=== PATIENT | female | born 1990 | race Caucasian/White ===

== ENCOUNTER 2019-09-27 12:57 | Emergency (ER) | payer OTHER ==
--- OUTSIDE RECORDS SUMMARY | 2019-09-27 13:13 | XMS REPORT | Continuity of Care Document ---
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 OPERATOR type Vitamin D deficiency Natalya Mock, Onset: 09/24/2018 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 Social History Type Date Description Comments Sex Unknown ETOH Use Denies alcohol use Tobacco Use Reviewed: 12/28/18 Light tobacco smoker (10 2 cigarettes a day or fewer cigarettes/day) Recreational Drug Use Regularly uses Marijuana every day Smoking Status Reviewed: 12/28/18 Light tobacco smoker (10 2 cigarettes a day or fewer cigarettes/day) Allergies, Adverse Reactions, Alerts Description No Known Drug Allergies Medications Active Medications SIG Qnty Indications Ordering Provider Date Viibryd 1 by mouth every 30tabs Kaya Meredith 08/09/2019 20mg Tablets day MMD Jc Hydroxyzine HCL take one tablet 120tabs Kaya Meredith 01/21/2019 25mg by mouth four M.MD Tablets times a day as needed Vitamin D 2 by mouth every 90caps Kaya Meredith 10/10/2018 (Cholecalciferol) aristeo MMD Jc 1000Unit Capsules Albuterol Sulfate HFA 2 puffs every 4 8.500gm Nanavakinga Digant 09/24/2018 hours as needed MD Abraham 108(90Base) mcg/Act Aerosol Norgestim-Eth Estrad take one tablet 28tabs Betinaavakinga, Digant Triphasic by mouth every M., day 0.18/0.215/0.25 mg-25 mcg Tablets Immunizations CPT Code Status Date Vaccine Lot # [id number] Given 11/14/2016 Tdap (Adacel) Ages 7 And Above Only [id number] Refused 08/09/2019 Influenza Vaccine Preservative & Antibiotic Free For Im Use [id number] Refused 09/24/2018 Influenza Vac, Quadrivalent, Split, 0.5mL Dosage, Im Use Vital Signs Date Vital Result Comment 08/09/2019 10:08am Body Temperature 97.7 F Weight 177.00 lb Heart Rate 59 /min BP Systolic 128 mmHg BP Diastolic 82 mmHg Respiratory Rate 18 /min Height 66 inches 5'6" O2 % BldC Oximetry 99 % BMI (Body Mass Index) 28.6 kg/m2 01/21/2019 1:52pm Weight 174.00 lb Heart Rate 73 /min BP Systolic 110 mmHg BP Diastolic 70 mmHg Respiratory Rate 16 /min Height 66 inches 5'6" O2 % BldC Oximetry 95 % BMI (Body Mass Index) 28.1 kg/m2 Results Description No Information Available Procedures Description No Information Available Medical Devices Description No Information Available Encounters Description No Information Available Assessments Date Code Description Provider 08/09/2019 F41.1 Generalized anxiety disorder Natalya Mock NP 08/09/2019 M25.511 Pain in RIGHT shoulder Natalya Mock NP 08/09/2019 M25.531 Pain in RIGHT wrist Natalya Mock NP 08/09/2019 Z68.28 Body mass index (BMI) 28.0-28.9, Natalya Mock, adult DESKTOP OPERATOR Plan of Treatment Future Appointment(s):09/10/2019 9:00 am - Hdalocv1 at [facility] [place]10/09/2019 9:00 am - Natalya Mock, DESKTOP OPERATOR at [facility] [place]08/09/2019 - Natalya Mock, NPF41.1 Generalized anxiety disorderComments:will continue on viibryd. tolerating well. advised to continue with counseling.M25.511 Pain in RIGHT shoulderComments: Has tried conservative management without relief. Will continue ice as needed.refuses PT will refer to rsgaoX61.531 Pain in RIGHT wristComments:wrist splints advised. refer to ortho.Z68.28 Body mass index (BMI) 28.0-28.9, adultComments:diet and exercise and weight loss encouraged.AllNew Medication: Viibryd 20 mg - 1 by mouth every dayReferral:[facility] ,Follow up:2 months schedule pelvic exam schedule HDA Functional Status Description No Information Available Mental Status Description No Information Available Referrals Refer to Reason for Referral Status Appt Date [facility] Created [address] [place] [address] [phone]
[2019-09-27 13:33] VITALS: BP 112/57
[2019-09-27 14:13] LABS: Influenza A Molecular Negative (Negative); Influenza B Molecular Negative (Negative)
--- NOTE | 2019-09-27 14:22 | UC ---
FLU HPI - HPI Summary HPI Summary: 28-year-old female who has had flulike symptoms this week with diarrhea today 3 times. She did once this morning however she thinks she might be and she is requesting a test. - History of Current Complaint Chief Complaint: UCGeneralIllness Stated Complaint: DIARRHEA,POSSIBLY Time Seen by Provider: 09/27/19 14:13 Hx Obtained From: Patient Hx Last Menstrual Period: aug 25, 2019 ?: No - patient would like a test because she is late for her period Onset/Duration: Gradual Onset Severity Currently: Mild Severity Initially: Mild Pain Intensity: 5 Associated Signs & Symptoms: Positive: Nasal Congestion, Vomiting, Diarrhea - Allergy/Home Medications Allergies/Adverse Reactions: Allergies Allergy/AdvReac Type Severity Reaction Status Date / Time No Known Allergies Allergy Verified 09/27/19 13:21 Home Medications: Home Medications Norgestimate-Ethinyl Estradiol [Ortho Tri-Cyclen 28 Tablet] 1 tab QPM 04/25/19 [ History Confirmed 09/27/19] Dm/Pseudoephed/Acetaminoph/Cpm [Gisela-Cotuit Plus-D Sinus] 1 cap PO PRN [History] Vilazodone (NF) [Viibryd (NF)] 20 mg PO DAILY 09/27/19 [History Confirmed ] PMH/Surg Hx/FS Hx/Imm Hx Previously Healthy: Yes Psychological History: Depression - Surgical History Surgical History: Yes Surgery Procedure, Year, and Place: Appendix. Plastic surgery on face/neck- "hole in left side of cheek" 2017 - Family History Known Family History: Positive: Cardiac Disease - Social History Lives: With Family Alcohol Use: None Substance Use Type: None Smoking Status (MU): Light Every Day Tobacco Smoker Type: Cigarettes Amount Used/How Often: 6 cigs/day Length of Time of Smoking/Using Tobacco: 13 years Have You Smoked in the Last Year: Yes Review of Systems All Other Systems Reviewed And Are Negative: Yes Gastrointestinal: Positive: Vomiting - Vomiting once this morning which patient thinks she might be , Diarrhea - Diarrhea 3 times today, Nausea Is Patient Immunocompromised?: No Physical Exam Triage Information Reviewed: Yes Appearance: Well-Appearing, No Pain Distress, Well-Nourished Vital Signs: Initial Vital Signs Temp 98.2 F 09/27/19 13:24 Pulse 66 03/13/20 13:24 Resp 18 09/27/19 13:24 BP 112/57 09/27/19 13:24 Pulse Ox 98 09/27/19 13:24 Vital Signs Reviewed: Yes Eyes: Positive: Conjunctiva Clear ENT: Positive: Pharynx normal, TMs normal, Uvula midline Neck: Positive: Supple, Nontender, No Lymphadenopathy Respiratory: Positive: Lungs clear, Normal breath sounds, No respiratory distress, No accessory muscle use Cardiovascular: Positive: RRR, No Murmur, Pulses Normal, Brisk Capillary Refill Abdomen Description: Positive: Nontender, No Organomegaly, Soft. Negative: CVA Tenderness (R), CVA Tenderness (L), Distended, Guarding, Hepatomegaly, Splenomegaly Bowel Sounds: Positive: Present Musculoskeletal Exam: Normal Neurological Exam: Normal Psychological Exam: Normal Skin Exam: Normal Flu Course/Dx - Course Course Of Treatment: The patient is comfortable here and nontoxic. Her test was positive. Influenza Test was negative. I advised the patient she could consult with the pharmacist regarding what medication to take for her diarrhea however she preferred to do more natural things such as certain foods which would make her constipated. - Differential Dx/Diagnosis Provider Diagnosis: Diarrhea, Positive test Discharge ED - Sign-Out/Discharge Documenting (check all that apply): Patient Departure All imaging exams completed and their final reports reviewed: No Studies - Discharge Plan Condition: Good Disposition: HOME Patient Education Materials: Acute Diarrhea (ED) Referrals: Kaya Meredith MD [Primary Care Provider] - Additional Instructions: Increase fluids, try eating food that we discussed. Definite follow-up with your [facility] physician for further care for the positive test. Follow- up with your primary care provider in 2 or 3 days if continued diarrhea and no improvement. - Billing Disposition and Condition Condition: GOOD Disposition: Home
== END 2019-09-27 14:30 | disposition home or self-care (01) ==
LOC: MERGE 12:57 → UCCORT 12:57
DX: O99.89 Other specified diseases and conditions complicating pregnancy, childbirth and the puerperium (principal); R19.7 Diarrhea, unspecified; O99.340 Other mental disorders complicating pregnancy, unspecified trimester; F32.9 Major depressive disorder, single episode, unspecified; Z79.899 Other long term (current) drug therapy; O99.330 Smoking (tobacco) complicating pregnancy, unspecified trimester
CPT/HCPCS: 84702; 99211; G0463